=== PATIENT | male | born 1960 | race Caucasian/White ===

== ENCOUNTER 2018-07-31 21:22 | Emergency (ER) | payer MEDICAID ==
[~2018-07-31] VITALS: Ht 182.9 cm; Wt 129.5 kg
[~2018-07-31 21:22] MED LIST: ALD25T PO; ASPI-107 PO; BUDE10.23 IH; CARV25TA2; EPIN0.1S2 SQ; INSU100V15 SQ; INSU100V36 SQ; LEVA15HF4 IH; LISI-222 PO; MAGN400C PO; METF500T7 PO; NITR0.4T51 SL; NORCO10T PO; OMEP20CA4 PO; PARO-44 PO; RANI-327 PO; SIMV10TA2 PO; SITA100T15 PO; TIOT18CA7 IH
[2018-07-31 21:23] VITALS: BP 134/51
[2018-07-31] MEDS ORDERED: predniSONE 20 mg tablet PO ONE (21:40)
[2018-07-31] MEDS ORDERED: ketorolac trometh. 30mg/ml inj. IV ONE (21:40)
[2018-07-31] MEDS ORDERED: PRED20TA PO (21:43)
== END 2018-07-31 21:56 | disposition home or self-care (01) ==
LOC: ER 21:22
DX: G62.9 Polyneuropathy, unspecified (principal); I25.10 Atherosclerotic heart disease of native coronary artery without angina pectoris; I11.0 Hypertensive heart disease with heart failure; I50.9 Heart failure, unspecified; I25.2 Old myocardial infarction; J44.9 Chronic obstructive pulmonary disease, unspecified; E11.9 Type 2 diabetes mellitus without complications; Z86.73 Personal history of transient ischemic attack (TIA), and cerebral infarction without residual deficits; Z95.0 Presence of cardiac pacemaker; Z87.891 Personal history of nicotine dependence; Z79.82 Long term (current) use of aspirin; Z79.84 Long term (current) use of oral hypoglycemic drugs; Z79.4 Long term (current) use of insulin; Z56.0 Unemployment, unspecified
CPT/HCPCS: 96374; 99284; J1885; J7512

== ENCOUNTER 2018-12-27 01:38 | Emergency (ER) | payer MEDICAID ==
[~2018-12-27] VITALS: Ht 182.9 cm; Wt 134.0 kg
[2018-12-27 02:21] LABS: ALANINE AMINOTRANSFERASE 41 U/L (12-78); ALBUMIN 3.4 G/DL (3.4-5.0); ALKALINE PHOSPHATASE 38 IU/L (46-116); ANION GAP 10 (8-16); ASPARTATE AMINO TRANSFERASE 25 U/L (10-37); BILIRUBIN,TOTAL 0.4 MG/DL (0.1-1.0); BLOOD UREA NITROGEN 14 MG/DL (7-18); BUN/CREATININE RATIO 12.2 (5.4-32.0); CALCIUM 8.5 MG/DL (8.5-10.1); CHLORIDE 106 MMOL/L (99-107); CREATININE 1.15 MG/DL (0.60-1.10); GLUCOSE 129 MG/DL (70-104); MAGNESIUM 1.6 MG/DL (1.5-2.4); POTASSIUM 3.8 MMOL/L (3.5-5.1); SODIUM 139 MMOL/L (135-145); TOTAL CARBON DIOXIDE 23.1 MMOL/L (24-32); TOTAL PROTEIN 6.8 G/DL (6.4-8.2); eGFR 65 ML/MIN
[2018-12-27 02:22] LABS: INR 1.1 INR; PARTIAL THROMBOPLASTIN TIME 27 SECONDS (22-32); PROTHROMBIN TIME 10.9 SECONDS (9.0-12.0)
[2018-12-27 02:34] LABS: BASOPHILS # (AUTO) 0.1 X10'3 (0-0.2); BASOPHILS % (AUTO) 1.2 % (0-1); EOSINOPHILS # (AUTO) 0.3 X10'3 (0-0.9); EOSINOPHILS % (AUTO) 2.7 % (0-6); HEMATOCRIT 38.8 % (42.0-52.0); HEMOGLOBIN 13.1 g/dl (14.0-17.9); LYMPHOCYTES # (AUTO) 3.7 X10'3 (1.1-4.8); LYMPHOCYTES % (AUTO) 35.2 % (21-51); MEAN CORPUSCULAR HEMOGLOBIN 30.3 PG (27.0-31.0); MEAN CORPUSCULAR HGB CONC 33.7 g/dL (33.0-36.5); MEAN CORPUSCULAR VOLUME 89.8 FL (78-98); NEUTROPHILS # (AUTO) 5.3 X10'3 (1.8-7.7); NEUTROPHILS % (AUTO) 50.9 % (42-75); PLATELET COUNT 193 X10'3 (140-440); RED BLOOD COUNT 4.32 X10'6 (4.70-6.10); RED CELL DISTRIBUTION WIDTH 14.6 % (11.5-14.5); WHITE BLOOD COUNT 10.4 X10'3 (4.5-11.0)
--- NOTE | 2018-12-27 02:48 | NUR ---
Dereck from [employer] states that he is on home monitoring and that there have no episodes of shocks.
--- NOTE | 2018-12-27 02:51 | NUR ---
made aware and [facility] is faxing report
--- NOTE | 2018-12-27 03:18 | NUR ---
FAX CAME THROUGH, LABELED, PLACED ONTO CHART AND GIVEN TO MD.
[2018-12-27 03:35] VITALS: BP 112/78
[2018-12-27 04:40] LABS: LARGE PLATELETS FEW; PLATELET ESTIMATE NORMAL
== END 2018-12-27 04:24 | disposition home or self-care (01) ==
LOC: ER 01:39
DX: G25.3 Myoclonus (principal); R06.02 Shortness of breath; I25.10 Atherosclerotic heart disease of native coronary artery without angina pectoris; I11.0 Hypertensive heart disease with heart failure; I50.9 Heart failure, unspecified; I25.2 Old myocardial infarction; J44.9 Chronic obstructive pulmonary disease, unspecified; Z79.82 Long term (current) use of aspirin; Z79.899 Other long term (current) drug therapy; Z79.4 Long term (current) use of insulin; Z86.73 Personal history of transient ischemic attack (TIA), and cerebral infarction without residual deficits; Z87.891 Personal history of nicotine dependence; Z95.810 Presence of automatic (implantable) cardiac defibrillator
CPT/HCPCS: 36415; 71045; 80053; 83735; 84484; 85025; 85610; 85730; 93005; 99284